=== PATIENT | male | born 1955 | race Caucasian/White ===

== ENCOUNTER → 2025-03-13 12:07 | Outpatient (REF) | payer MEDICARE, OTHER, SELFPAY ==
[2025-03-13 14:28] LABS: Hematocrit 45.6 % (39.0-52.0); Hemoglobin 15.4 g/dL (13.0-18.0); Mean Corp Hgb Conc. 33.8 g/dL (33.0-37.0); Mean Corpuscular Volume 90.3 fL (80.0-94.0); Nucleated Red Blood Cells % 0 % (-); Platelet Count 230 10^3/uL (130-400); Red Cell Dist. Width 13.1 % (11.5-14.5)
[2025-03-13 15:28] LABS: PSA, Total - Screen 2.91 ng/ml (0.0-4.0); TSH 2.09 uIU/ml (0.47-4.68)
[2025-03-14 08:59] LABS: Glycohemoglobin (HgbA1c) 6.1 % (4.0-5.6)
== END ==
LOC: REG 12:07
PROVIDERS: ATTENDING PHYSICIAN Internal Medicine; FAMILY PHYSICIAN Family Medicine
DX: Z78.9 Other specified health status (principal); Z12.5 Encounter for screening for malignant neoplasm of prostate; I42.8 Other cardiomyopathies; E78.00 Pure hypercholesterolemia, unspecified; Z79.899 Other long term (current) drug therapy
CPT/HCPCS: 36415; 82550; 83036; 84443; 85025; 86765; G0103

== ENCOUNTER 2025-03-20 09:11 | Outpatient (RCR) | payer MEDICARE, OTHER, SELFPAY | END 2025-03-20 23:59 | disposition home or self-care (01) | LOC: RPT 09:11 | PROVIDERS: ATTENDING PHYSICIAN Family Medicine; FAMILY PHYSICIAN Physical Medicine & Rehabilitation | DX: M54.51 Vertebrogenic low back pain (principal); Z73.6 Limitation of activities due to disability; X50.0XXD Overexertion from strenuous movement or load, subsequent encounter | CPT/HCPCS: 97110; 97161 ==

== ENCOUNTER → 2025-05-19 09:52 | Outpatient (REF) | payer MEDICARE, OTHER, SELFPAY | LOC: RAD 09:52 | PROVIDERS: ATTENDING PHYSICIAN Family Medicine | DX: M85.80 Other specified disorders of bone density and structure, unspecified site (principal); M51.379 Other intervertebral disc degeneration, lumbosacral region without mention of lumbar back pain or lower extremity pain; M19.90 Unspecified osteoarthritis, unspecified site; M85.88 Other specified disorders of bone density and structure, other site | CPT/HCPCS: 77080 ==